=== PATIENT | female | born 1950 | race Caucasian/White ===

== ENCOUNTER 2021-10-21 23:29 | Emergency (ER) | payer MEDICARE, OTHER ==
--- NOTE | 2021-10-22 00:20 | NUR ---
PT DOES NOT WISH TO BE SEEN BY A PHYSICIAN. PT REQUESTED TO LEAVE WITHOUT BEING SEEN.
== END 2021-10-22 01:18 | disposition left against medical advice (07) ==
LOC: ER 23:34
DX: Z53.21 Procedure and treatment not carried out due to patient leaving prior to being seen by health care provider (principal)